=== PATIENT | female | born 2005 | race Caucasian/White ===

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

== ENCOUNTER 2024-01-02 16:31 | Emergency (ER) | payer BC, SELFPAY ==
--- NOTE | ~2024-01-02 | XR_ITS ---
XR shoulder LT min 2V DATE: 01/02/2024 17:06 INDICATION: Fall. Left shoulder pain. TECHNIQUE: 4 views COMPARISON: None FINDINGS: No fracture or dislocation, periosteal reaction or bone destruction. No abnormal soft tissu e calcification. IMPRESSION: No fracture or dislocation Reviewed, dictated and finalized at location A. SH MACHINE TENDER IMPRESSION: No fracture or dislocation
[2024-01-02 16:45] VITALS: BP 143/99; PULSE 113; RESP 16; TEMP 37; O2SAT 99
--- NOTE | 2024-01-02 17:15 | ED.GENADULT ---
HPI - General Adult General Chief complaint: Extremity Injury, Upper Stated complaint: Left Shoulder Pain Time Seen by Provider: 01/02/24 17:15 Source: patient Mode of arrival: ambulatory Limitations: no limitations History of Present Illness HPI narrative: 18-year-old female patient presents to the [facility] with complaints of left shoulder pain. Patient states last night she was walking in the dark and she tripped and fell on to her left shoulder. Patient states she was able to get up on her own. Patient states she is not taking any Tylenol or ibuprofen for the pain. Related Data Home Medications Medication Instructions Recorded Confirmed amlodipine 10 mg tablet 10 mg PO DAILY 11/04/22 01/02/24 fluoxetine 40 mg capsule 40 mg PO DAILY 11/04/22 01/02/24 lisinopril 5 mg tablet 5 mg PO DAILY 11/04/22 01/02/24 desogestrel-e.estradiol 0.15 1 tablet PO DAILY 01/13/23 01/02/24 mg-0.02 mg(21)/e.estrad 0.01 mg(5) tablet (Volnea (28)) Allergies Allergy/AdvReac Type Severity Reaction Status Date / Time No Known Allergies Allergy Verified 01/02/24 17:46 Review of Systems Review of Systems: CONSTITUTIONAL: Denies fever, chills, or sweats. EYES: Denies visual changes, redness, or discharge. ENT: Denies rhinorrhea, congestion, sore throat, or otalgia. CARDIOVASCULAR: Denies chest pain, palpitations, or edema. RESPIRATORY: Denies cough or dyspnea. GASTROINTESTINAL: Denies abdominal pain, nausea, vomiting, or diarrhea. GENITOURINARY: Denies dysuria or hematuria. SKIN: Denies rash or itching. MUSCULOSKELETAL: Denies back pain, joint pain, or myalgia. Positive left shoulder pain NEUROLOGIC: Denies headache, numbness, or weakness. PSYCHIATRIC: Denies anxiety or depression. PMFSH Comments At the time of my signature I agree with nursing past medical history, surgical, social, and family history. There is no relevant family history pertinent to the presenting complaint. Exam Narrative: GENERAL: Well-appearing, well-nourished, and in no acute distress. HEAD: Normocephalic, atraumatic. EYES: PERRLA and EOMI. ENT: Nares clear, no rhinorrhea or epistaxis. Mucous membranes moist. NECK: Supple. No lymphadenopathy CHEST: Clear to auscultation. No respiratory distress. HEART: Regular rate and rhythm. No murmur heard. Normal peripheral pulses. ABDOMEN: Soft, nontender, nondistended, normal active bowel sounds. EXTREMITIES: The L shoulder is without obvious asymmetry or deformity when compared to the R shoulder. No surface trauma, ecchymosis, crepitus. No bony deformity or prominence of the humeral head No erythema, warmth, very slight swelling noted to the left shoulder as compared to the right. no tenderness to palpation to clavicle, tenderness over the A to C joint, acromion, scapula no tenderness over the humeral head. No tenderness to palpation of the bicipital groove or soft tissues. No tenderness to palpation of the muscles of the sterncleido mastoid, pectorals, biceps/triceps, deltoid, trapezius, rhomboid, latissimus dorsi, no tenderness over the rotator cuff. pain and limitation with active adduction, normal abduction. Pain withinternal/external rotation, pain with flexion/extension. unable to perform empty can and drop arm test (rotator cuff). No axillary tenderness or lymphadenopathy. Normal sensation over the deltoid and ability to flex arm at elbow indicates intact axillary nerve function. Distal motor and neurovascular status is intact. SKIN: Warm, dry, no rash. NEURO: No focal deficits. Alert and oriented x3. Course Course Level of Care: Express Care Visit Reevaluation(s) Reevaluation #1: follow-up with patient and notified her that her x-ray is negative for any acute fracture however given her decreased range of motion to the left shoulder on exam I am concerned that she might have a ligament injury. Discussed with her that I would like for her to follow-up with orthopedic surgeon for further evaluation and treatment most likely will need an MRI and possible physical therapy. Patient is aware the plan of care. Discussed with patient that we will fit her with an arm sling today she should take Tylenol, ibuprofen and ice the area until she can follow up with orthopedic surgeon for further evaluation. Patient verbalized understanding denies any other questions or concerns at this time. Date: 01/02/24 Time: 17:58 Vital Signs Vital signs: Vital Signs Temperature 37.0 C 01/02/24 16:45 Pulse Rate 113 H 01/02/24 16:45 Respiratory Rate 16 01/02/24 16:45 Blood Pressure 143/99 H 01/02/24 16:45 Pulse Oximetry 99 01/02/24 16:45 Temperature 37.0 C 01/02/24 16:45 Pulse Rate 113 H 01/02/24 16:45 Respiratory Rate 16 01/02/24 16:45 Blood Pressure 143/99 H 01/02/24 16:45 Pulse Oximetry 99 01/02/24 16:45 Vital signs reviewed. The patient has been informed that they may have pre-hypertension or Hypertension based on a BP reading in the department. I recommend that the patient call the primary care provider listed on their discharge instructions or a physician of their choice this week to arrange follow up for further evaluation of possible pre-hypertension or Hypertension Medical Decision Making MDM Narrative Medical decision making narrative: plan of care patient's x-ray of the left shoulder to assess for any acute fractures. I will reassess patient wants x-ray has resulted. Differential Diagnosis Differential Diagnosis: Differential diagnosis: Neurovascular compromise, anterior shoulder dislocation, posterior dislocation, facture, AC separation, shoulder cuff tear, bursitis, tendinitis Vital Signs Vital Signs: Vital Signs Temperature 37.0 C 01/02/24 16:45 Pulse Rate 113 H 01/02/24 16:45 Respiratory Rate 16 01/02/24 16:45 Blood Pressure 143/99 H 01/02/24 16:45 Pulse Oximetry 99 01/02/24 16:45 Temperature 37.0 C 01/02/24 16:45 Pulse Rate 113 H 01/02/24 16:45 Respiratory Rate 16 01/02/24 16:45 Blood Pressure 143/99 H 01/02/24 16:45 Pulse Oximetry 99 01/02/24 16:45 Imaging Data Radiologist's impression: Express [facility] [place] [address] [facility] [place] [place] [address] XRay Report Signed Patient: Shadia Pena : 2005 MR#: [id number] Age: 18 Acct:[id number] Loc: [id number] ADM Date: 01/02/24Attending Dr: Ordering Physician: Marilee Stuart APRN Date of Service: 01/02/24 Procedure(s): XR shoulder LT min 2V Accession Number(s): [id number] cc: FIXED [employer]ING [employer] FLIGHT MECHANIC PHYSICIAN; Marilee Stuart TORTS LAW PROFESSOR~ XR shoulder LT min 2V DATE: 01/02/2024 17:06 INDICATION: Fall. Left shoulder pain. TECHNIQUE: 4 views COMPARISON: None FINDINGS: No fracture or dislocation, periosteal reaction or bone destruction. No abnormal soft tissue calcification. IMPRESSION: No fracture or dislocation Reviewed, dictated and finalized at location A. AVER SIGNATURE Dictated By: Marcelo Villeda MD 01/02/24 1748 Signed By: <Electronically signed by Marcelo Villeda MD in OV> Critical Care Time Critical Care Time Critical Care Time: No Discharge Plan Discharge Clinical Impression: Internal derangement of left shoulder Patient Disposition: Home, Self-Care Condition: Stable Instructions: Antibiotic Form, Shoulder Pain (ED) Additional Instructions: Avoid weight bearing until the pain subsides. Ice to the area 20-30 minutes 4-6 times a day arm sling as directed for comfort for the next 5-7 days Tylenol for lesser pain Ibuprofen regularly for the next 2-3 days for the inflammation please call and follow-up with orthopedic surgeon for further evaluation and treatment Follow up with your primary care provider if the condition is not improving within 1 week or sooner if the Condition worsens with numbness, tingling, decrease sensation with weakness to seek ER. Prescriptions: No Action fluoxetine 40 mg capsule 40 mg PO DAILY amlodipine 10 mg tablet 10 mg PO DAILY lisinopril 5 mg tablet 5 mg PO DAILY desog-e.estradiol/e.estradiol [Volnea (28)] 0.15-0.02 mgx21 /0.01 mg x 5 tablet 1 tablet PO DAILY Follow-up/Referrals: PHYSICIAN,FIXED WING [employer]CRAFT FLIGHT MECHANIC [Primary Care Provider] - Jerry Greenfield MD [Physician] - Time of Disposition: 17:54
[2024-01-02] MEDS: ACETAMINOPHEN 500 MG TABLET 1000 MG PO (17:38)
== END 2024-01-02 18:07 | disposition home or self-care (01) ==
PROVIDERS: Emergency Provider Nurse Practitioner Family
DX: M24.9 Joint derangement, unspecified (principal)
CPT/HCPCS: 73030; 99213; A4565; A9270; G0463